=== PATIENT | female | born 1960 | race Caucasian/White ===

== ENCOUNTER 2024-12-17 15:01 | Inpatient (IN) | payer MEDICARE, MEDICAID ==
[~2024-12-17] VITALS: Ht 152.4 cm; Wt 43.2 kg
[2024-12-17] MEDS: MIDAZOLAM HCL 2 MG/2 ML VIAL IM ONE (16:26)
[2024-12-17] MEDS: LEVETIRACETAM 1000MG PREMIX 100 ML IV ONE (16:56)
[2024-12-17 17:53] LABS: BASOPHILS % 0.2 % (0.0-2.0); EOSINOPHILS % 0.2 % (0.0-5.0); HEMOGLOBIN. 11.7 g/dL (12.0-16.0); LYMPHOCYTES % 8.8 % (20.0-50.0); MEAN CORPUSCULAR HEMOGLOBIN 30.2 pg (28.0-32.0); MEAN CORPUSCULAR HGB CONC 33.5 g/dL (31.0-37.0); MEAN PLATELET VOLUME 6.3 fl (7.4-10.4); MONOCYTES % 4.1 % (2.0-8.0); NEUTROPHILS % 86.7 % (40.0-76.0); PLATELET 288 x1000/uL (130-400); RED BLOOD CELL COUNT 3.88 mill/uL (4.2-5.4); RED CELL DISTRIBUTION WIDTH 19.4 % (11.6-14.6); WHITE BLOOD COUNT 9.6 x1000/uL (4.5-11.0)
[2024-12-17 18:04] LABS: CHLORIDE 85 mEq/L (98-107); POTASSIUM 3.5 mEq/L (3.5-5.1); SODIUM 121 mEq/L (136-145)
[2024-12-17 18:05] LABS: CALCIUM 9.1 mg/dL (8.7-10.4); CARBON DIOXIDE 27 mEq/L (21-32)
[2024-12-17 18:10] LABS: CREATININE 0.6 mg/dL (0.6-1.0); GLUCOSE 113 mg/dL (70-105); UREA NITROGEN BLOOD 9 mg/dL (9-23)
[2024-12-17 18:11] LABS: ETHANOL BLOOD < 10 mg/dL (<10)
[2024-12-17 18:16] LABS: TROPONIN I HIGH SENSITIVITY 81 ng/L (3.0-34)
[2024-12-17] MEDS: HALOPERIDOL LACTATE 5MG/ML VIAL IM ONE (18:30)
[2024-12-17] MEDS ORDERED: DIPHENHYDRAMINE 50MG/ML VIAL IV ONE (19:45)
[2024-12-17] MEDS: DIPHENHYDRAMINE 50MG/ML VIAL IM ONE (20:14)
[2024-12-17 21:20] LABS: TROPONIN I HIGH SENSITIVITY 340 ng/L (3.0-34)
[2024-12-17] MEDS: ASPIRIN 325MG TABLET PO ONE (21:45)
[2024-12-17] MEDS ORDERED: MORPHINE SULFATE 2 MG/ML INJ (NOT FOR IM USE) IV PRN (22:45)
[2024-12-17] MEDS ORDERED: CLONIDINE 0.1MG TABLET PO PRN (22:45)
[2024-12-17] MEDS ORDERED: ENOXAPARIN 40MG/0.4ML SYR SUBCUT SCH (22:45)
[2024-12-17] MEDS ORDERED: ONDANSETRON HCL 4MG/2ML INJ IV PRN (22:45)
[2024-12-17] MEDS ORDERED: ACETAMINOPHEN 325MG TABLET PO PRN (22:45)
[2024-12-17] MEDS ORDERED: HYDROCODONE/ACETAMINOPHEN 5/325MG TABLET PO PRN (22:55)
[2024-12-17] MEDS ORDERED: IPRATROPIUM/ALBUTEROL 0.5-3(2.5)MG/3ML NEB NEB PRN (22:55)
[2024-12-17 23:32] VITALS: BP 117/73; PULSE 87; RESP 16; TEMP 37
[2024-12-18 00:23] VITALS: BP 117/73; PULSE 66; RESP 19; TEMP 36.9
[2024-12-18] MEDS: SODIUM CHLORIDE 0.9% 1,000 ML IV SCH (00:50)
[2024-12-18] MEDS: ENOXAPARIN 60MG/0.6ML SYR SUBCUT NR (00:50)
[2024-12-18] MEDS: MVI, ADULT NO.1 10 ML, FOLIC ACID 1 MG, THIAMINE HCL 100 MG in SODIUM CHLORIDE 0.9% 1,0... IV SCH (01:00)
[2024-12-18 04:00] VITALS: BP 102/67; PULSE 61; RESP 17; TEMP 36.4
[2024-12-18 07:01] LABS: INR 0.9; PROTHROMBIN TIME 10.2 sec (9.6-11.0)
[2024-12-18 07:07] LABS: CARBON DIOXIDE 23 mEq/L (21-32); CHLORIDE 105 mEq/L (98-107); POTASSIUM 3.4 mEq/L (3.5-5.1); SODIUM 137 mEq/L (136-145)
[2024-12-18 07:08] LABS: CALCIUM 9.2 mg/dL (8.7-10.4)
[2024-12-18 07:13] LABS: CREATININE 0.6 mg/dL (0.6-1.0); GLUCOSE 91 mg/dL (70-105); UREA NITROGEN BLOOD 12 mg/dL (9-23)
[2024-12-18 07:52] LABS: TROPONIN I HIGH SENSITIVITY 651 ng/L (3.0-34)
[2024-12-18 08:00] VITALS: BP 111/68; PULSE 71; RESP 18; TEMP 36.7; O2SAT 99
[2024-12-18 08:00] LABS: CLARITY URINE CLEAR (CLEAR); COLOR URINE YELLOW (YELLOW); GLUCOSE URINE NEGATIVE (NEGATIVE); KETONES URINE NEGATIVE (NEGATIVE); LEUKOCYTE ESTERASE URINE 1+ (NEGATIVE); NITRITE URINE NEGATIVE (NEGATIVE); OCCULT BLOOD URINE TRACE (NEGATIVE); PH URINE 6.5 (4.5-8.0); PROTEIN URINE NEGATIVE (NEGATIVE); UROBILINOGEN URINE 0.2 E.U./dL (0.2-1.0)
[2024-12-18] MEDS ORDERED: NALOXONE HCL 0.4MG/ML VIAL IV PRN (08:00)
[2024-12-18 08:29] LABS: SQUAMOUS EPITHELIAL CELL URINE 2+ /lpf (RARE/1+)
[2024-12-18] MEDS: ASPIRIN 81MG EC TABLET PO SCH (08:39)
[2024-12-18] MEDS: LEVETIRACETAM 500MG PREMIX 100 ML IV SCH (08:39)
[2024-12-18] MEDS: PANTOPRAZOLE SODIUM 40 MG/VIAL IV SCH (08:39)
[2024-12-18 08:41] LABS: BACTERIA URINE 2+; COARSE GRANULAR CASTS URINE 0-5 /lpf; FINE GRANULAR CASTS URINE 0-5 /lpf; HYALINE CASTS URINE 0-5 /lpf
[2024-12-18 08:49] LABS: *AMPHETAMINES SCREEN URINE NEGATIVE (NEGATIVE); *BARBITURATES SCREEN URINE NEGATIVE (NEGATIVE); *BENZODIAZEPINES SCREEN URINE PRESUMPTIVE POSITIVE (NEGATIVE); *COCAINE SCREEN URINE NEGATIVE (NEGATIVE); CANNABINOID URINE SCREEN NEGATIVE (NEGATIVE); ECSTASY MDMA SCREEN URINE NEGATIVE (NEGATIVE); METHADONE URINE SCREEN NEGATIVE (NEGATIVE); OPIATES URINE SCREEN NEGATIVE (NEGATIVE); PHENCYCLIDINE URINE SCREEN NEGATIVE (NEGATIVE)
[2024-12-18] MEDS: ENOXAPARIN 60MG/0.6ML SYR SUBCUT SCH (09:00)
[2024-12-18] MEDS: POTASSIUM CHLORIDE 20MEQ/PACKET PO SCH (09:40)
[2024-12-18] MEDS: LORAZEPAM 2MG/ML UD SYRINGE IV PRN (09:50)
[2024-12-18 12:00] VITALS: BP 140/79; PULSE 62; RESP 21; TEMP 36.6; O2SAT 98
[2024-12-18] MEDS ORDERED: DIVA125C2 PO (13:12)
[2024-12-18] MEDS ORDERED: TRAZ-251 PO (13:12)
[2024-12-18] MEDS ORDERED: RISP1SOL4 PO (13:12)
[2024-12-18] MEDS: RISPERIDONE 1MG TABLET PO SCH (14:12)
[2024-12-18] MEDS: DIVALPROEX SODIUM 125MG SPRINKLE CAPSULE PO SCH (14:12)
[2024-12-18 16:00] VITALS: BP 125/51; PULSE 72; RESP 22; TEMP 36.8; O2SAT 98
[2024-12-18 17:23] LABS: TROPONIN I HIGH SENSITIVITY 366 ng/L (3.0-34)
[2024-12-18 20:00] VITALS: BP 115/58; PULSE 61; RESP 20; TEMP 36.7
[2024-12-18] MEDS: TRAZODONE HCL 50MG TABLET PO SCH (21:00)
[2024-12-19] VITALS: BP 134/60; PULSE 63; RESP 18; TEMP 36.4
[2024-12-19 04:00] VITALS: BP 145/67; PULSE 54; RESP 21; TEMP 36.3
[2024-12-19 07:34] LABS: CARBON DIOXIDE 24 mEq/L (21-32); CHLORIDE 108 mEq/L (98-107); POTASSIUM 3.6 mEq/L (3.5-5.1); SODIUM 141 mEq/L (136-145)
[2024-12-19 07:35] LABS: CALCIUM 8.6 mg/dL (8.7-10.4)
[2024-12-19 07:39] LABS: CREATININE 0.5 mg/dL (0.6-1.0)
[2024-12-19 07:40] LABS: GLUCOSE 84 mg/dL (70-105); UREA NITROGEN BLOOD 8 mg/dL (9-23)
[2024-12-19 08:00] VITALS: BP 145/89; PULSE 68; RESP 20; TEMP 36.4
[2024-12-19 12:00] VITALS: PULSE 62; RESP 22; TEMP 36.6; O2SAT 98
[2024-12-19 15:47] VITALS: BP 95/57; PULSE 70; RESP 21; TEMP 36.6; O2SAT 100
[2024-12-19 20:00] VITALS: BP 178/82; PULSE 66; RESP 24; TEMP 36.9; O2SAT 100
[2024-12-19] MEDS: SULFAMETHOXAZOLE/TRIMETHOPRIM 800/160MG TABLET PO SCH (21:57)
[2024-12-19] MEDS: ISOSORBIDE MONONITRATE 30MG TABLET SR 24HR PO SCH (23:23)
[2024-12-19] MEDS: LOSARTAN 25 MG TABLET PO SCH (23:23)
[2024-12-20 00:09] VITALS: BP 140/79; PULSE 69; RESP 22; TEMP 36.8; O2SAT 99
[2024-12-20 04:00] VITALS: BP 131/75; PULSE 71; RESP 20; TEMP 36.6; O2SAT 99
[2024-12-20 08:00] VITALS: BP 125/72; PULSE 69; RESP 15; TEMP 36.6; O2SAT 100
[2024-12-20 08:44] LABS: CALCIUM 9.4 mg/dL (8.7-10.4); CARBON DIOXIDE 27 mEq/L (21-32); CHLORIDE 101 mEq/L (98-107); POTASSIUM 3.4 mEq/L (3.5-5.1); SODIUM 138 mEq/L (136-145)
[2024-12-20 08:50] LABS: CREATININE 0.7 mg/dL (0.6-1.0); GLUCOSE 100 mg/dL (70-105); UREA NITROGEN BLOOD 9 mg/dL (9-23)
[2024-12-20] MEDS ORDERED: SULF1TAB44 PO (10:12)
[2024-12-20] MEDS ORDERED: LOSA25TA26 PO (10:12)
[2024-12-20] MEDS ORDERED: KEPP500 MT (10:12)
[2024-12-20] MEDS ORDERED: ISOS30TA91 PO (10:12)
[2024-12-20] MEDS: POTASSIUM CHLORIDE 20MEQ/PACKET PO SCH (11:09)
[2024-12-20 12:00] VITALS: BP 103/58; PULSE 74; RESP 20; TEMP 36.7; O2SAT 99
[2024-12-20 13:34] VITALS: BP 103/58; PULSE 74; TEMP 98; O2SAT 99
== END 2024-12-20 16:07 | disposition home or self-care (01) | DRG 100 ==
LOC: ER 15:01 → EDBEDREQ 15:49 → 3WST 21:02 → EDBEDREQ 21:28 → EDBEDREQTM 21:28 → ENRESERV 22:02
PROVIDERS: ADMIT Internal Medicine; ATTEND Internal Medicine
PROC: 4A00X4Z Measurement of Central Nervous Electrical Activity, External Approach (ICD-10-PCS; 2024-12-19)
PROC: GZ56ZZZ Individual Psychotherapy, Supportive (ICD-10-PCS; principal; 2024-12-20)
DX: G40.909 Epilepsy, unspecified, not intractable, without status epilepticus (principal); G92.8 Other toxic encephalopathy; I21.4 Non-ST elevation (NSTEMI) myocardial infarction; E87.1 Hypo-osmolality and hyponatremia; N39.0 Urinary tract infection, site not specified; Z59.01 Sheltered homelessness; Z79.899 Other long term (current) drug therapy; F31.9 Bipolar disorder, unspecified; F20.9 Schizophrenia, unspecified; Z91.148 Patient's other noncompliance with medication regimen for other reason; Z79.82 Long term (current) use of aspirin
CPT/HCPCS: 36415; 71045; 80048; 80305; 80320; 81003; 84484; 85025; 93005; 93306; 99291; A4606; J1200; J1630; J1650; J1953; J2060; J2250; J2470; J3411; J3490; J7030; G0480